=== PATIENT | male | born 1965 | race African-American/Black ===

== ENCOUNTER 2021-02-15 13:23 | Emergency (ER) | payer MEDICAID ==
[~2021-02-15] VITALS: Ht 180.3 cm; Wt 91.1 kg
[2021-02-15 13:29] VITALS: BP 109/66
--- NOTE | 2021-02-15 13:51 | NUR ---
Efrain molina in ED - 02/15/21 at 1352 by ESME PT C/O PAIN AND SWELLING ON RIGHT CHEEK AND MOUTH STARTING LAST NIGHT. REPORTS DENTAL GIBSON
--- NOTE | 2021-02-15 13:52 | NUR ---
PT C/O PAIN AND SWELLING ON RIGHT CHEEK AND MOUTH STARTING LAST NIGHT. REPORTS DENTAL PAIN
[2021-02-15] MEDS ORDERED: BENZOCAINE 20% SPRAY 0.5ML TP ONE (14:00)
[2021-02-15] MEDS ORDERED: BENZOCAINE 20% SPRAY 0.5ML ONE (14:01)
== END 2021-02-15 14:36 | disposition home or self-care (01) ==
LOC: ED 14:26
DX: K04.7 Periapical abscess without sinus (principal); K02.9 Dental caries, unspecified
CPT/HCPCS: 41800; 99284